=== PATIENT | female | born 1965 | race Caucasian/White ===

== ENCOUNTER 2018-07-05 11:31 | Outpatient (CLI) | payer OTHER ==
--- NOTE | 2018-07-05 11:55 | RAD ---
RIGHT KNEE 4 VIEWS: Date: 07/05/18 HISTORY: Right anterior knee pain. Injury. FINDINGS/IMPRESSION: Degenerative changes are present. No acute fracture, dislocation, or bony destruction seen. A joint e ffusion is present. If there is concern for meniscal or ligamentous injury, further evaluation with MRI should be perform ed. POS: [facility]
== END 2018-07-05 11:32 | disposition home or self-care (01) ==
LOC: BICRAD 11:31
PROVIDERS: ATTEND Family Medicine
DX: M25.561 Pain in right knee (principal); M17.11 Unilateral primary osteoarthritis, right knee
CPT/HCPCS: 36415; 80053; 83036

== ENCOUNTER 2018-08-02 11:54 | Day surgery (SDC) | payer SELFPAY ==
[~2018-08-02 11:54] MED LIST: Dexamethasone 20 MG/5 ML VIAL ONE; Ketorolac Tromethamine 30 MG/ML VIAL ONE; Lidocaine 2% PF 5 ML VIAL ONE; Ondansetron PF 4 MG/2 ML Vial ONE; PROPOFOL 200 MG/20 ML VIAL ONE; Succinylcholine Chloride 20 MG/ML 10 ml SYRINGE FS ONE; diphenhydrAMINE 50 MG/ML VIAL ONE
[2018-08-02 13:41] LABS: #Basophils 0.2 thou/uL (0.0-0.2); #Eosinphils 0.5 thou/uL (0.0-0.7); #Lymphocytes 2.7 thou/uL (1.20-3.40); #Neutrophils 4.9 thou/uL (1.40-6.50); %Basophils 1.9 % (0.0-1.0); %Eosinophils 5.4 % (0.0-10.0); %Lymphocytes 29.1 % (21.0-51.0); %Monocytes 10.7 % (0.0-10.0); %Neutrophils 52.9 % (42.0-75.0); Hemoglobin 15.9 g/dL (12.0-16.0); Mean Corpuscular HGB CONC 33.3 g/dL (32.0-36.0); Mean Corpuscular Hemoglobin 32.4 pg (27.0-31.0); Mean Corpuscular Volume 97.3 fL (78.0-98.0); Mean Platelet Volume 11.7 fL (7.4-10.4); Platelet Count 177 thou/uL (130-400); RBC Distribution Width 12.5 % (11.5-14.5); Red Blood Cell (RBC) Count 4.92 mill/uL (4.20-5.40); White Blood Cell (WBC) Count 9.2 thou/uL (4.8-10.8)
[2018-08-02 13:43] LABS: Bilirubin Negative (Negative); Blood, Urine Negative (Negative); Clarity CLOUDY (Clear); Glucose, Urine (Dipstick) 500 mg/dL (Negative); Leukocyte Negative (Negative); Nitrite Negative (Negative); Protein, Urine (Dipstick) Negative (Neg-Trace); Specific Gravity, Urine 1.029 (1.002-1.036); Urobilinogen 0.2 mg/dL (0.2-1.0); pH, Urine 5.5 (5.0-9.0)
[2018-08-02 13:48] LABS: Bacteria/HPF None Seen HPF (None Seen); Pathc Cast-AUWi Flag 2.04 (0-2.49); RBC/HPF 0-3 HPF (0-3); WBC/HPF 0-3 HPF (0-3)
[2018-08-02 14:06] LABS: Crystals/HPF 2+ CA OXALATE HPF (Negative); Hyaline Casts/LPF 0-3 HYALINE CAST LPF (0-3 Hyaline)
[2018-08-02 14:07] LABS: Urine Culture Reflex No No
[2018-08-02] MEDS ORDERED: Sodium Chloride 0.9% 10 ML ONE (14:51)
[2018-08-02] MEDS ORDERED: Bacitracin Zinc Ointment 30 gm TUBE ONE (14:51)
[2018-08-02] MEDS ORDERED: Betamet Acet/Betamet Na Ph 30 MG/5 ML VIAL ONE (14:51)
[2018-08-02] MEDS ORDERED: Bupivacaine PF 0.5% 30 ML VIAL ONE (14:51)
[2018-08-02] MEDS ORDERED: Fentanyl 100 MCG/2 ML VIAL ONE (14:54)
[2018-08-02] MEDS ORDERED: Ketorolac Tromethamine 30 MG/ML VIAL ONE (17:14)
--- NOTE | 2018-08-02 17:50 | RAD ---
RIGHT THUMB TWO VIEWS: 08/02/18 HISTORY: Pinning. This shows pin placement through the distal phalanx of the thumb. IMPRESSION: Pin placement of the distal phalanx of the thumb. POS: [facility]
--- NOTE | 2018-08-02 22:58 | OP ---
DATE OF PROCEDURE: 08/02/2018 PREOPERATIVE DIAGNOSIS: Left extensor pollicis longus 100% laceration. POSTOPERATIVE DIAGNOSES: 1. 100% laceration, extensor pollicis longus over the joint line, terminal tendon, left thumb. 2. Left thumb open wound 2.5 cm. 3. Left thumb, open joint. PROCEDURES PERFORMED: 1. Debridement of wound, left thumb. 2. Debridement of joint, left thumb, interphalangeal. 3. Closure of wound 2.5 cm and then repair of extensor pollicis longus 100% laceration with joint pinning, 0.035 K-wire. 4. C-arm supervision use/fluoroscopy intraoperatively. 5. Short-arm splint application. ESTIMATED BLOOD LOSS: 10 mL. TOURNIQUET TIME: 28 minutes. DESCRIPTION OF PROCEDURE: After successful general LMA technique, the limb was prepped and draped. We gave the patient 10 mL of 0.5% Marcaine block at metacarpophalangeal joint level of the thumb. We then exsanguinated the limb, inflated tourniquet to 250 mmHg pressure, extended the transverse laceration, which was more radial than ulna, 1 cm distal and 1 cm proximal. This exposed the laceration that we saw to 100%. The joint capsule was violated. We lifted up the joint capsule and the soft tissue between the tendon and bone, irrigated this with 2 L of normal saline with bacitracin on each side. Using a 5-0 Vicryl, we repaired the periosteal layer. We then used a multiple [id number] interrupted to repair the extensor tendon after we pinned the joint in 5 degrees of hyperextension. The C-arm confirmed the excellent position of the K-wire. We deflated the tourniquet. We closed the wound in 2 layers with the epidermis being closed with interrupted 5-0 nylon in a simple pattern. The patient left the operating room in a splint, short arm, without evidence of anesthetic or operative complication. Job ID: [id number]
== END 2018-08-02 18:43 | disposition home or self-care (01) ==
LOC: SDC 11:54
PROVIDERS: ATTEND Orthopaedic Surgery Hand Surgery
PROC: 0KQ90ZZ Repair Right Lower Arm and Wrist Muscle, Open Approach (ICD-10-PCS; principal; 2018-08-02)
DX: S61.012A Laceration without foreign body of left thumb without damage to nail, initial encounter (principal); Z88.5 Allergy status to narcotic agent; Z91.018 Allergy to other foods; Z91.048 Other nonmedicinal substance allergy status
CPT/HCPCS: 76000; 81001; 85025; 93005; 93010; J0131; J0690; J0702; J1100; J1200; J1885; J2001; J2405; J2704; J3010; J3490; S0020